=== PATIENT | female | born 1940 | race Caucasian/White ===

== ENCOUNTER → 2016-09-07 | Outpatient (CLI) | payer MEDICARE, OTHER ==
[~2016-09-07] MED LIST: ALPR.25T PO; ASPI-860 PO; CHOL100045 PO; DOCU-243 PO; ESTR0.452 PO; FAMO-119 PO; FAMO20TA13 PO; FLUT1DIS2 IH; HC2.5C30 EXT; IBP200T PO; IBUP1TAB PO; LABE200T3 PO; NITR0.4T SL; PRED5TAB PO; TELM1TAB2 PO; TELM1TAB3 PO; TRIA16.5 NS
[2016-09-07 09:12] LABS: BASOPHILS % (AUTO) 1 % (0-2); EOSINOPHILS # (AUTO) 0.2 10^3uL; EOSINOPHILS % (AUTO) 3 % (0-4); LYMPHOCYTES # (AUTO) 3.1 X10^3; MEAN CORPUSCULAR HEMOGLOBIN 30.8 PG (26.0-34.0); MEAN CORPUSCULAR HGB CONC 33.4 g/dL (31.0-37.0); MEAN CORPUSCULAR VOLUME 92 FL (80-100); MEAN PLATELET VOLUME 9.6 FL (6.0-9.5); MONOCYTES # (AUTO) 0.8 X10^3; MONOCYTES % (AUTO) 11 % (3-11); NEUTROPHILS # (AUTO) 3.2 X10^3; NEUTROPHILS % (AUTO) 43 % (51-67); PLATELET COUNT 271 10^3uL (150-450); WHITE BLOOD COUNT 7.28 10^3uL (4.0-11.0)
[2016-09-07 09:46] LABS: ALBUMIN 3.8 g/dL (3.4-5.0); ANION GAP 13.8 MEQ/L (3-15); CALCULATED IONIZED CALCIUM 4.3 mg/dL (3.8-4.6); TOTAL PROTEIN 6.7 g/dL (6.4-8.5)
== END ==
LOC: LAB 08:42
PROVIDERS: ATTEND Internal Medicine
DX: Z00.00 Encounter for general adult medical examination without abnormal findings (principal); I10 Essential (primary) hypertension; E78.00 Pure hypercholesterolemia, unspecified; E03.8 Other specified hypothyroidism; M85.80 Other specified disorders of bone density and structure, unspecified site
CPT/HCPCS: 36415; 80053; 80061; 82306; 84443; 85025

== ENCOUNTER → 2016-09-09 | Outpatient (CLI) | payer MEDICARE, OTHER ==
--- NOTE | 2016-09-09 10:08 | Diagnostic Imaging Report ---
PROCEDURE: CT sinuses without contrast TECHNIQUE: Multiple contiguous axial images were obtained through the sinuses without the use of intravenous contrast. Coronal and sagittal reformations were then performed. INDICATION: Dizziness. Sinusitis. COMPARISON: CT orbits and sella 12/01/2014. FINDINGS: Postoperative changes of bilateral maxillary antrostomies and ethmoidectomies which are widely patent. There remains moderate mucosal thickening throughout the ethmoid, sphenoid and maxillary sinuses. This has progressed since the prior exam. Chronic osteitis about the paranasal sinuses. No air-fluid levels. Midline nasal septum. Intracranial vascular calcifications. IMPRESSION: 1. Interval progression of the mucosal thickening throughout the ethmoid, sphenoid and maxillary sinuses. 2. No air-fluid levels in the paranasal sinuses. Dictated by: Dictated on workstation # [id number]
== END ==
LOC: RAD 09:23
PROVIDERS: ATTEND Internal Medicine
DX: R42 Dizziness and giddiness (principal); J01.41 Acute recurrent pansinusitis
CPT/HCPCS: 70486; 80053; 80061; 82306; 84439; 84443; 85025; 85652; 86140

== ENCOUNTER → 2016-09-09 | Outpatient (REF) | payer MEDICARE, OTHER ==
[2016-09-09 09:50] LABS: MEAN CORPUSCULAR HEMOGLOBIN 30.4 PG (26.0-34.0); MEAN CORPUSCULAR HGB CONC 33.2 g/dL (31.0-37.0); MEAN CORPUSCULAR VOLUME 92 FL (80-100); MEAN PLATELET VOLUME 9.9 FL (6.0-9.5); PLATELET COUNT 257 10^3uL (150-450); WHITE BLOOD COUNT 6.81 10^3uL (4.0-11.0)
[2016-09-09 10:08] LABS: ALBUMIN 3.7 g/dL (3.4-5.0); ANION GAP 13.9 MEQ/L (3-15); CALCULATED IONIZED CALCIUM 4.3 mg/dL (3.8-4.6); TOTAL PROTEIN 6.5 g/dL (6.4-8.5)
[2016-09-09 10:30] LABS: BAND NEUTROPHILS % 0 % (0-6); EOSINOPHILS % 3 % (0-4); LYMPHOCYTES # 2.9 #; MONOCYTES # 0.8 #; MONOCYTES % 13 % (3-11); RBC MORPH NORMAL (NORMAL); SEGMENTED NEUTROPHILS % 40 % (51-67); TOTAL CELLS COUNTED 100
[2016-09-09 10:55] LABS: ERYTHROCYTE SEDIMENTATION RT* 16 mm/hr (0-23)
== END ==
LOC: LAB 09:16
PROVIDERS: ATTEND Internal Medicine
DX: Z00.00 Encounter for general adult medical examination without abnormal findings (principal); I10 Essential (primary) hypertension; E03.8 Other specified hypothyroidism; E78.00 Pure hypercholesterolemia, unspecified; M85.80 Other specified disorders of bone density and structure, unspecified site; R42 Dizziness and giddiness; J01.41 Acute recurrent pansinusitis
CPT/HCPCS: 80053; 80061; 82306; 84439; 84443; 85025; 85652; 86140

== ENCOUNTER → 2016-12-10 | Outpatient (CLI) | payer MEDICARE, OTHER | LOC: LAB 09:52 | PROVIDERS: ATTEND Internal Medicine | DX: E03.8 Other specified hypothyroidism (principal) | CPT/HCPCS: 36415; 84443 ==